=== PATIENT | female | born 1960 | race African-American/Black ===

== ENCOUNTER 2017-11-01 08:04 | Day surgery (SDC) | payer MEDICARE, MEDICAID ==
[2017-10-31 09:58] VITALS: BMI 43.9
--- NOTE | 2017-11-01 14:14 | OP ---
DATE OF PROCEDURE: 11/01/2017 PROCEDURES PERFORMED: Esophagogastroduodenoscopy with esophageal balloon dilation and esophageal bio psy and duodenum biopsy and colonoscopy. PREOPERATIVE DIAGNOSIS: Iron deficiency anemia and esophageal dysphagia PROCEDURE IN DETAIL: Informed consent was obtained from the patient. She was sedated with total int ravenous anesthesia. The bite block was placed and the endoscope was advanced easily to the second p ortion of the duodenum and retroflexion was performed in the stomach. The esophagus had a stricture in the distal esophagus. This was moderately severe to mild. The stricture was dilated to 18 mm wit h a balloon dilator. There was an appropriate mucosal tear at the dilation site. Biopsies were obta ined from the esophagus to rule out eosinophilic esophagitis. There was a small hiatal hernia presen t. The stomach was normal including retroflexed views. The pylorus and first and second portions of the duodenum were normal. Duodenal biopsies were taken to rule out celiac disease. Patient was tur tiara around. Rectal exam was performed and was normal. The colonoscope was advanced to the terminal ileum without difficulty. The mucosa of the terminal ileum was normal. The ileocecal valve and appe ndiceal orifice were clearly identified. The preparation quality was good. The colonic mucosa was n ormal throughout. There was moderate diverticulosis of the left colon. Retroflex views in the rectu m were normal. IMPRESSION: 1. 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 2. Small hiatal hernia. 3. Otherwise normal esophagogastroduodenoscopy. Duodenal biopsies taken to rule out celiac disease. Esophageal biopsies taken to rule out eosinophilic esophagitis. 4. Diverticulosis of the left colon. 5. Otherwise normal colonoscopy. RECOMMENDATIONS: 1. Await histopathology. 2. Continue pantoprazole 40 mg daily. 3. Repeat colonoscopy in 10 years. 4. Follow up in the office in 4 weeks.
[2017-11-01] MEDS ORDERED: Lidocaine 1% PF 5 ML VIAL ONE (16:41)
[2017-11-01] MEDS ORDERED: Propofol 200 MG/20 ML VIAL ONE (16:41)
== END 2017-11-01 14:10 | disposition home or self-care (01) ==
LOC: SDC 08:04
PROVIDERS: ATTEND Internal Medicine Gastroenterology
PROC: 0DJD8ZZ Inspection of Lower Intestinal Tract, Via Natural or Artificial Opening Endoscopic (ICD-10-PCS; principal; 2017-11-01)
PROC: 0DB58ZX Excision of Esophagus, Via Natural or Artificial Opening Endoscopic, Diagnostic (ICD-10-PCS; 2017-11-01)
PROC: 0D758ZZ Dilation of Esophagus, Via Natural or Artificial Opening Endoscopic (ICD-10-PCS; 2017-11-01)
DX: Z12.11 Encounter for screening for malignant neoplasm of colon (principal); K20.9 Esophagitis, unspecified; K29.80 Duodenitis without bleeding; D50.0 Iron deficiency anemia secondary to blood loss (chronic); K22.2 Esophageal obstruction; K44.9 Diaphragmatic hernia without obstruction or gangrene; K57.30 Diverticulosis of large intestine without perforation or abscess without bleeding; Z88.0 Allergy status to penicillin; Z88.8 Allergy status to other drugs, medicaments and biological substances; Z98.890 Other specified postprocedural states
CPT/HCPCS: 43239; 43249; 82962; G0121; 36416; 88305; 88312; 88313; J2001; J2704

== ENCOUNTER 2019-02-18 13:04 | Outpatient (CLI) | payer MEDICARE, MEDICAID ==
--- NOTE | 2019-02-18 13:44 | RAD ---
PA AND LATERAL VIEWS CHEST: HISTORY: Dyspnea. FINDINGS: Comparison is made with the exam of 12/30/2014. The cardiomediastinum is normal. The lungs are expanded without lobar consolidation, pneumothoraces, mass, or pleural effusion. Bony structures are unremarkable. IMPRESSION: Stable exam. No acute process. POS: OFF
== END 2019-02-18 13:05 | disposition home or self-care (01) ==
LOC: RAD 13:04
PROVIDERS: ATTEND Internal Medicine Pulmonary Disease
DX: R06.00 Dyspnea, unspecified (principal)
CPT/HCPCS: 71046

== ENCOUNTER 2019-05-19 13:18 | Outpatient (CLI) | payer MEDICARE, MEDICAID ==
--- NOTE | 2019-05-19 13:39 | RAD ---
TWO VIEW CHEST: INDICATION: Dyspnea. COMPARISON: 02/18/2019. FINDINGS: Lung gongora remain clear. Heart and mediastinum appear normal. Vascular markings normal. Osseous s tructures unremarkable. IMPRESSION: No acute findings. POS: [facility]
== END 2019-05-19 13:19 | disposition home or self-care (01) ==
LOC: RAD 13:18
PROVIDERS: ATTEND Internal Medicine Pulmonary Disease
DX: R06.00 Dyspnea, unspecified (principal)
CPT/HCPCS: 71046

== ENCOUNTER 2019-08-11 13:39 | Outpatient (CLI) | payer MEDICARE, MEDICAID ==
--- NOTE | 2019-08-11 14:47 | RAD ---
CHEST PA AND LATERAL: Date: 08/11/2019 HISTORY: Dyspnea. COMPARISON: 05/19/2019. FINDINGS: Heart size is normal. The lungs are clear. No pneumonia, edema, or pleural effusion. IMPRESSION: No acute intrathoracic disease. Stable from prior study. POS: OFF
== END 2019-08-11 13:40 | disposition home or self-care (01) ==
LOC: RAD 13:39
PROVIDERS: ATTEND Internal Medicine Pulmonary Disease
DX: R06.00 Dyspnea, unspecified (principal)
CPT/HCPCS: 71046

== ENCOUNTER 2021-12-18 09:42 | Outpatient (CLI) | payer MEDICARE ==
[2021-12-18 20:11] LABS: SARS-CoV-2 PCR by NAA Not Detected (NotDetected)
== END 2021-12-18 09:43 | disposition home or self-care (01) ==
LOC: LABBT 09:42
PROVIDERS: ATTEND Internal Medicine Gastroenterology
DX: Z20.822 Contact with and (suspected) exposure to COVID-19 (principal)
CPT/HCPCS: U0003; U0005

== ENCOUNTER 2021-12-21 05:46 | Day surgery (SDC) | payer MEDICARE ==
[2021-12-20 09:09] VITALS: BMI 43.1
== END 2021-12-21 08:50 | disposition home or self-care (01) ==
LOC: SDC 05:46
PROVIDERS: ATTEND Internal Medicine Gastroenterology
PROC: 0D738ZZ Dilation of Lower Esophagus, Via Natural or Artificial Opening Endoscopic (ICD-10-PCS; principal; 2021-12-21)
DX: K22.2 Esophageal obstruction (principal); K44.9 Diaphragmatic hernia without obstruction or gangrene; K21.9 Gastro-esophageal reflux disease without esophagitis; M19.90 Unspecified osteoarthritis, unspecified site; J45.909 Unspecified asthma, uncomplicated; E11.9 Type 2 diabetes mellitus without complications; I10 Essential (primary) hypertension; Z79.84 Long term (current) use of oral hypoglycemic drugs; Z79.890 Hormone replacement therapy; Z79.899 Other long term (current) drug therapy; Z88.0 Allergy status to penicillin; Z88.6 Allergy status to analgesic agent